=== PATIENT | female | born 1980 | race Caucasian/White ===

== ENCOUNTER → 2023-09-02 13:52 | Outpatient (REF) | payer OTHER, SELFPAY | LOC: WDC 13:52 | PROVIDERS: ATTENDING PHYSICIAN Nurse Practitioner Adult Health; FAMILY PHYSICIAN Nurse Practitioner | DX: R92.8 Other abnormal and inconclusive findings on diagnostic imaging of breast (principal) | CPT/HCPCS: 76642 ==

== ENCOUNTER → 2023-10-24 10:46 | Outpatient (REF) | payer OTHER, SELFPAY | LOC: HWRAD 10:46 | PROVIDERS: ATTENDING PHYSICIAN Obstetrics & Gynecology; FAMILY PHYSICIAN Nurse Practitioner | DX: M62.89 Other specified disorders of muscle (principal); R10.2 Pelvic and perineal pain | CPT/HCPCS: 76830; 76856 ==

== ENCOUNTER → 2023-12-15 15:02 | Outpatient (REF) | payer OTHER, SELFPAY | LOC: HWRAD 15:02 | PROVIDERS: ATTENDING PHYSICIAN Nurse Practitioner | DX: R05.9 Cough, unspecified (principal) | CPT/HCPCS: 71046 ==

== ENCOUNTER → 2024-03-03 07:46 | Outpatient (REF) | payer OTHER, SELFPAY | LOC: WDC 07:46 | PROVIDERS: ATTENDING PHYSICIAN Nurse Practitioner Adult Health; FAMILY PHYSICIAN Nurse Practitioner | DX: Z12.31 Encounter for screening mammogram for malignant neoplasm of breast (principal); R92.8 Other abnormal and inconclusive findings on diagnostic imaging of breast | CPT/HCPCS: 76642; 77063; 77067 ==

== ENCOUNTER → 2024-04-07 16:21 | Outpatient (REF) | payer OTHER, SELFPAY | LOC: RAD 16:21 | PROVIDERS: ATTENDING PHYSICIAN Physician Assistant; FAMILY PHYSICIAN Nurse Practitioner | DX: J32.8 Other chronic sinusitis (principal) | CPT/HCPCS: 70486 ==

== ENCOUNTER 2024-08-16 06:15 | Day surgery (SDC) | payer OTHER, SELFPAY ==
[2024-08-16] VITALS (10 sets, daily range): BP systolic 98–129; BP diastolic 56–87; BMI 37.2
[2024-08-16] MEDS: TRANSDERM-SCOP 1 PATCH TRANSDERM (09:02)
--- NOTE | 2024-08-16 09:27 | PTCARENOTE ---
Patient stuck once by Penny Schwarz RN and partial thread IV and positional. Payal RN in to see patient and 1 unsuccessful stick. IV team called to see patient. Patient feeling clammy. Patient lying flat with col rag on head and RN with patient.
Will monitor.
[2024-08-16] MEDS: NORMOSOL-R/PLASMALYTE-A 1000 IV (09:41)
--- NOTE | 2024-08-16 09:50 | PTCARENOTE ---
Min from IV team successfully stuck patient for IV placement. Will monitor patient. Patient feels fine and the feeling of clamminess passed. Will monitor patient.
[2024-08-16] MEDS: ZOFRAN 4 MG IV (13:24)
[2024-08-16] MEDS: DILAUDID 0.5 MG IV (13:52)
[2024-08-16] MEDS: ROXICODONE 5 MG PO (15:38)
== END 2024-08-16 16:39 | disposition home or self-care (01) ==
LOC: SDS 06:15
PROVIDERS: ATTENDING PHYSICIAN Otolaryngology
DX: J32.9 Chronic sinusitis, unspecified (principal); J34.2 Deviated nasal septum
CPT/HCPCS: 31255; 30520; 31256; 88311

== ENCOUNTER → 2025-01-04 07:09 | Outpatient (REF) | payer OTHER, SELFPAY | LOC: HWRAD 07:09 | PROVIDERS: ATTENDING PHYSICIAN Nurse Practitioner | DX: K21.9 Gastro-esophageal reflux disease without esophagitis (principal); R10.11 Right upper quadrant pain; R10.13 Epigastric pain; R14.0 Abdominal distension (gaseous) | CPT/HCPCS: 76700 ==

== ENCOUNTER → 2025-01-06 13:36 | Outpatient (REF) | payer OTHER, SELFPAY | LOC: DHSLP 13:36 | PROVIDERS: ATTENDING PHYSICIAN Nurse Practitioner | DX: G47.33 Obstructive sleep apnea (adult) (pediatric) (principal) | CPT/HCPCS: 95800 ==

== ENCOUNTER → 2025-04-07 13:59 | Outpatient (REF) | payer OTHER, SELFPAY | LOC: WDC 13:59 | PROVIDERS: ATTENDING PHYSICIAN Nurse Practitioner Adult Health; FAMILY PHYSICIAN Nurse Practitioner | DX: Z12.31 Encounter for screening mammogram for malignant neoplasm of breast (principal); R92.8 Other abnormal and inconclusive findings on diagnostic imaging of breast | CPT/HCPCS: 76642; 77063; 77067 ==